=== PATIENT | male | born 1960 | race Caucasian/White ===

== ENCOUNTER → 2017-12-05 | Outpatient (CLI) | payer OTHER | LOC: FIMAGING 09:33 | PROVIDERS: ATTEND Internal Medicine Hematology & Oncology | DX: J42 Unspecified chronic bronchitis (principal); C91.11 Chronic lymphocytic leukemia of B-cell type in remission; Z87.891 Personal history of nicotine dependence ==

== ENCOUNTER → 2018-01-23 | Outpatient (CLI) | payer OTHER ==
[~2018-01-23] MED LIST: GADOBUTROL 10 ML VIAL IVP ONE
== END ==
LOC: FIMAGING 07:13
PROVIDERS: ATTEND Internal Medicine Hematology & Oncology
DX: K76.9 Liver disease, unspecified (principal); R59.9 Enlarged lymph nodes, unspecified; R22.42 Localized swelling, mass and lump, left lower limb; C91.11 Chronic lymphocytic leukemia of B-cell type in remission; Z85.828 Personal history of other malignant neoplasm of skin
CPT/HCPCS: A9585

== ENCOUNTER → 2018-03-09 | Outpatient (CLI) | payer OTHER | LOC: FIMAGING 07:51 | PROVIDERS: ATTEND Internal Medicine Hematology & Oncology | DX: M79.605 Pain in left leg (principal); R22.42 Localized swelling, mass and lump, left lower limb | CPT/HCPCS: A9585 ==

== ENCOUNTER → 2018-06-08 | Outpatient (CLI) | payer OTHER | LOC: FIMAGING 11:14 | PROVIDERS: ATTEND Internal Medicine Hematology & Oncology | DX: R05 Cough (principal); R50.9 Fever, unspecified; C91.11 Chronic lymphocytic leukemia of B-cell type in remission; J40 Bronchitis, not specified as acute or chronic ==